=== PATIENT | female | born 1985 | race Caucasian/White ===

== ENCOUNTER 2018-08-01 09:16 | Emergency (ER) | payer OTHER ==
[2018-08-01] MEDS ORDERED: RABIES VACC, HUMAN DIPLOID/PF 2.5 UNIT VIAL (RABAVERT) IM ONE (09:44)
[2018-08-01] MEDS ORDERED: RABIES IMMUNE GLOBULIN/PF 300 UNIT/ML VIAL IF ONE (09:44)
--- NOTE | 2018-08-01 09:44 | EDPHY ---
General Time Seen by Provider: 08/01/18 09:39 Narrative: CHIEF COMPLAINT: Rabies exposure HISTORY OF PRESENT ILLNESS: Patient presents for a vehicle with complaints of possible rabies exposure. She reports that her child was bitten on the left hip by Soriano on July 22. The Soriano was captured, killed and [facility] Reportedly positive for rabies. Patient is here out of concern for possible exposure on her hands as she did handle the daughters close and potentially came in contact with Soriano saliva. She has no complaints of any kind including no signs of infection or neuro complaints. She was sent here by the child's registrar college or university with recommendation for post exposure prophylaxis. Tdap is reportedly up-to- date REVIEW OF SYSTEMS: 10 systems were reviewed and negative with the exception of the elements mentioned in the history of present illness. PCP: None currently SPECIALISTS: None PAST MEDICAL HISTORY: None PAST SURGICAL HISTORY: None SOCIAL HISTORY: Nonsmoker. Lives independently with her spouse and daughter. Works as a social work. Recently moved from [place] FAMILY HISTORY: Noncontributory EXAMINATION: Vitals: Triage VS reviewed General Appearance: Alert, no distress Neck: Normal inspection, supple, non-tender Respiratory: Lungs are clear to auscultation Cardiovascular: Regular rate and rhythm Neurological: A&O, nonfocal, normal gait Skin: Warm and dry, no rash. No signs of infection to the hands or fingers. Extremities: Nontender, no pedal edema DIFFERENTIAL DIAGNOSES: Including but not limited to possible rabies exposure. MDM: 9:35 a.m. Possible exposure to rabies from a soriano that bit her child and was captured and tested positive for rabies. Both the patient and her spouse are here requesting post exposure prophylaxis. They requested that I discussed with her infectious disease physician prior to commencement. They are both asymptomatic. There is no signs of infection to the hands. There was no bite or scratch directly from the animal their concern lies and that they were handling the child wound, the close and that there hands did have scratches on them from climbing. Infectious Disease will be consulted. 9:40 a.m. Case discussed with on-call infectious disease physician Dr. Turcios. He agrees that it is reasonable to commence post exposure prophylaxis. He will notify his office that the patient will be scheduling there days 3, 7 and 14 follow-up for vaccine administration. 9:45 a.m. Patient re-evaluated. Agreed to proceed with post exposure prophylaxis. I do feel this is reasonable, as does Infectious Disease. We discussed the administration and subsequent dosing that will need to be administered outpatient. We discussed signs of infection to watch for and vaccine reactions to watch for. We discussed ED precautions. The be discharged in stable condition and I will provide the on-call primary care physician for them to establish with. SUPERVISION: This patient was independently evaluated without direct involvement of or examination by the attending physician. CONSULTATION: ID by telephone - History Smoking Status: Never smoked - Objective Vital Signs: Initial Vital Signs Temperature (C) 97.2 F 08/01/18 09:16 Heart Rate 49 L 08/01/18 09:16 Respiratory Rate 16 08/01/18 09:16 Blood Pressure 112/59 L 08/01/18 09:16 O2 Sat (%) 97 08/01/18 09:16 O2 Delivery Mode Room Air Allergies/Adverse Reactions: No Known Allergies Allergy (Unverified 08/01/18 09:21) Home Medications: Medication Instructions Recorded NK [No Known Home Meds] 08/01/18 Medications Given: Discontinued Medications Rabies Immune Globulin (Hyperrab 300 Unit/Ml) 1,179.34 unit IF .ONCE ONE Stop: 08/01/18 09:45 Last Admin: 08/01/18 10:41 Dose: 1,179.34 unit Rabies Vaccine Human Diploid Cell (Rabavert) 2.5 unit IM .ONCE ONE Stop: 08/01/18 09:45 Last Admin: 08/01/18 10:10 Dose: 2.5 unit Departure - Departure Disposition: Home, Routine, Self-Care Clinical Impression: Rabies exposure, Need for post exposure prophylaxis for rabies Condition: Good Instructions: Rabies Vaccine (By injection), Rabies Immune Globulin (By injection) Additional Instructions: 1. Contact Dr. Meijas office for dosing on days 3, 7 and 14 from now. 2. ED precautions for any redness, warmth or signs of infection Referrals: Angel Quach DO [Doctor of Osteopathy] - As per Instructions Vladimir Turcios MD [Medical Doctor] - As per Instructions
[2018-08-01 11:36] VITALS: BP 102/54
== END 2018-08-01 11:36 | disposition home or self-care (01) ==
DX: Z20.3 Contact with and (suspected) exposure to rabies (principal); Z23 Encounter for immunization